=== PATIENT | female | born 1985 | race Caucasian/White ===

== ENCOUNTER 2017-02-25 15:59 | Emergency (ER) | payer MEDICAID ==
[2017-02-25] MEDS: ACETAMINOPHEN 500 MG TAB PO (18:12)
[2017-02-25 18:16] LABS: URINE BLOOD (Dip) POC Negative (NEGATIVE); URINE GLUCOSE (Dip) POC Negative (NEGATIVE); URINE KETONES (Dip) POC Negative (NEGATIVE); URINE LEUKOCYTE EST (Dip) POC Trace (NEGATIVE); URINE NITRITE (Dip) POC Negative (NEGATIVE); URINE TOTAL PROTEIN POC Negative (NEGATIVE)
== END 2017-02-25 19:53 | disposition home or self-care (01) ==
LOC: FTE 15:59
DX: O99.89 Other specified diseases and conditions complicating pregnancy, childbirth and the puerperium (principal); R05 Cough; Z3A.18 18 weeks gestation of pregnancy
CPT/HCPCS: 76805; 81003; 93005; 99284-25

== ENCOUNTER 2017-03-26 10:26 | Emergency (ER) | payer MEDICAID ==
[2017-03-26] MEDS: ONDANSETRON 4 MG INJ IV (13:01)
[2017-03-26] MEDS: SOD CHLORIDE 0.9% 1,000 ML IV (13:03)
[2017-03-26 13:11] LABS: URINE BLOOD (Dip) POC Negative (NEGATIVE); URINE GLUCOSE (Dip) POC Negative (NEGATIVE); URINE KETONES (Dip) POC Trace (NEGATIVE); URINE LEUKOCYTE EST (Dip) POC Negative (NEGATIVE); URINE NITRITE (Dip) POC Negative (NEGATIVE); URINE TOTAL PROTEIN POC 1+ (NEGATIVE)
[2017-03-26 13:17] LABS: ADD MAN DIFF? NO
[2017-03-26 13:20] LABS: BASOPHILS % 0.3 % (0.0-2.0); EOSINOPHILS # 0.1 10^3/ul (0.0-0.5); HEMATOCRIT 29.1 % (37.0-47.0); HEMOGLOBIN 9.8 g/dl (12.0-16.0); LYMPHOCYTES # 0.7 10^3/ul (0.8-2.9); LYMPHOCYTES % 7.4 % (15.0-51.0); MEAN CORPUSCULAR HEMOGLOBIN 29.4 pg (29.0-33.0); MEAN CORPUSCULAR HGB CONC 33.7 g/dl (32.0-37.0); MEAN CORPUSCULAR VOLUME 87.4 fl (82.0-101.0); MEAN PLATELET VOLUME 10.2 fl (7.4-10.4); MONOCYTE # 0.7 10^3/ul (0.3-0.9); MONOCYTES % 7.2 % (0.0-11.0); NEUTROPHIL # 8.2 10^3/ul (1.6-7.5); PLATELET COUNT 281 10^3/UL (140-415); RED BLOOD COUNT 3.33 10^6/ul (4.20-5.40); RED CELL DISTRIBUTION WIDTH 13.2 % (11.5-14.5)
[2017-03-26 13:20] LABS: WHITE BLOOD COUNT 9.8 10^3/ul (4.8-10.8)
[2017-03-26 13:39] LABS: LACTIC ACID 1.2 mmol/L (0.5-2.0)
[2017-03-26 13:40] LABS: ALANINE AMINOTRANSFERASE 34 IU/L (13-69); ALBUMIN 3.7 g/dl (3.3-4.9); ALBUMIN/GLOBULIN RATIO 1.23; ALKALINE PHOSPHATASE 83 IU/L (42-121); ANION GAP 13 (8-16); ASPARTATE AMINO TRANSFERASE 26 IU/L (15-46); BILIRUBIN,INDIRECT 0.1 mg/dl (0-1.1); BILIRUBIN,TOTAL 0.1 mg/dl (0.2-1.3); BLOOD UREA NITROGEN 5 mg/dl (7-20); CALCIUM 8.6 mg/dl (8.4-10.2); CARBON DIOXIDE 23 mmol/L (21-31); CHLORIDE 102 mmol/L (97-110); CREATININE 0.51 mg/dl (0.44-1.00); GLUCOSE 101 mg/dl (70-220); POTASSIUM 3.5 mmol/L (3.5-5.1); SODIUM 134 mmol/L (135-144); TOTAL PROTEIN 6.7 g/dl (6.1-8.1)
[2017-03-26] MEDS: ACETAMINOPHEN 500 MG TAB PO (14:39)
[2017-03-26] MEDS: morphine 2 MG INJ IV (14:39)
== END 2017-03-26 15:48 | disposition home or self-care (01) ==
LOC: FTE 10:26
DX: O99.512 Diseases of the respiratory system complicating pregnancy, second trimester (principal); J06.9 Acute upper respiratory infection, unspecified; R50.9 Fever, unspecified; E66.9 Obesity, unspecified; O99.012 Anemia complicating pregnancy, second trimester; D64.9 Anemia, unspecified; Z3A.23 23 weeks gestation of pregnancy
CPT/HCPCS: 36415; 76805; 80053; 81003; 83605; 85025; 87086; 96374; 96375; 99285-25

== ENCOUNTER 2017-07-21 11:03 | Inpatient (IN) | payer MEDICAID ==
[2017-07-21] MEDS ORDERED: CARBOPROST 250 MCG INJ IM ×2 (11:30→21:00)
[2017-07-21] MEDS ORDERED: METHYLERGONOVINE 0.2 MG INJ IM ×2 (11:30→21:00)
[2017-07-21] MEDS ORDERED: MISOPROSTOL 200 MCG TAB PR ×2 (11:30→21:00)
[2017-07-21] MEDS ORDERED: OXYTOCIN 30 UNITS/LR 500 ML IV ×2 (11:30→21:00)
[2017-07-21 11:41] LABS: ADD MAN DIFF? NO
[2017-07-21 11:51] LABS: WHITE BLOOD COUNT 12.6 10^3/ul (4.8-10.8)
[2017-07-21 11:51] LABS: BASOPHILS % 0.3 % (0.0-2.0); EOSINOPHILS # 0.1 10^3/ul (0.0-0.5); HEMATOCRIT 32.9 % (37.0-47.0); HEMOGLOBIN 10.9 g/dl (12.0-16.0); LYMPHOCYTES % 16.1 % (15.0-51.0); MEAN CORPUSCULAR HEMOGLOBIN 28.8 pg (29.0-33.0); MEAN CORPUSCULAR HGB CONC 33.1 g/dl (32.0-37.0); MEAN PLATELET VOLUME 10.8 fl (7.4-10.4); MONOCYTE # 0.6 10^3/ul (0.3-0.9); MONOCYTES % 5.1 % (0.0-11.0); NEUTROPHIL # 9.7 10^3/ul (1.6-7.5); NEUTROPHILS % 76.6 % (39.0-77.0); PLATELET COUNT 307 10^3/UL (140-415); RED BLOOD COUNT 3.78 10^6/ul (4.20-5.40)
[2017-07-21] MEDS: LACTATED RINGER'S 1,000 ML IV ×2 (11:57→15:25)
[2017-07-21 12:16] LABS: INR 0.85; PROTIME 11.7 Sec (11.9-14.9); PT RATIO 0.9
[2017-07-21 12:17] LABS: PARTIAL THROMBOPLASTIN TIME 25.6 Sec (25.0-35.0)
[2017-07-21] MEDS: CITRIC ACID/SODIUM CITRATE 15 ML CUP PO (12:36)
[2017-07-21] MEDS: ONDANSETRON 4 MG INJ IV (12:36)
[2017-07-21] MEDS ORDERED: OXYTOCIN 10 UNIT INJ (17:01)
[2017-07-21] MEDS ORDERED: PHENYLephrine (100 MCG/ML) 5ML SYG (17:01)
[2017-07-21] MEDS ORDERED: METOCLOPRAMIDE 10 MG INJ (17:01)
[2017-07-21] MEDS ORDERED: FENTAnyl 50 MCG/ML VIAL (17:01)
[2017-07-21] MEDS ORDERED: morphine SULFATE/PF (10 MG/10 ML) INJ (17:01)
[2017-07-21] MEDS ORDERED: BUPIVACAINE 0.75%/DEXT (SPINAL) 2 ML INJ (17:10)
[2017-07-21] MEDS: GENTAMICIN 80 MG/NS (PMX) 50 ML IVPB ×2 (17:10→23:08)
[2017-07-21] MEDS ORDERED: LABETALOL HCL 20MG INJ IV (18:00)
[2017-07-21] MEDS ORDERED: hydrALAzine 20 MG INJ IV (18:00)
[2017-07-21] MEDS ORDERED: TRIMETHOBENZAMIDE 100 MG/ML VIAL IM ×2 (18:00)
[2017-07-21] MEDS ORDERED: morphine 2 MG INJ IV (18:00)
[2017-07-21] MEDS ORDERED: HYDROmorphONE (0.2 MG/ML) 10ML SYG IV ×3 (18:00)
[2017-07-21] MEDS ORDERED: EPHEDrine SULFATE 50 MG/5 ML SYG IV (18:00)
[2017-07-21] MEDS ORDERED: ONDANSETRON 4 MG INJ IV ×2 (18:00)
[2017-07-21] MEDS ORDERED: DIPHENHYDRAMINE 50 MG INJ IV ×2 (18:00)
[2017-07-21] MEDS ORDERED: ALBUTEROL 0.083% (NEB) 2.5 MG/3 ML AMP HHN (18:00)
[2017-07-21] MEDS ORDERED: FENTAnyl 50 MCG/ML VIAL IV ×3 (18:00)
[2017-07-21] MEDS ORDERED: MIDAZOLAM 1 MG/ML 2 ML INJ IV (18:00)
[2017-07-21] MEDS ORDERED: IPRATROPIUM (NEB) 0.5 MG/2.5 ML AMP HHN (18:00)
[2017-07-21] MEDS ORDERED: MEPERIDINE 25 MG INJ IV (18:00)
[2017-07-21] MEDS ORDERED: NALBUPHINE HCL (10 MG/1 ML) INJ IV (18:00)
[2017-07-21] MEDS ORDERED: NALOXONE (0.4 MG/ML) INJ IV (18:00)
[2017-07-21] MEDS ORDERED: OXYCODONE/ACETAMINOPHEN (5/325) TAB PO ×2 (18:00)
[2017-07-21] MEDS: KETOROLAC 30 MG INJ IV (18:54)
[2017-07-21] MEDS: CLINDAMYCIN 900 MG/D5W (PMX) 50 ML IV (19:21)
[2017-07-21] MEDS: OXYTOCIN 30 UNITS/LR 500 ML IV (19:31)
[2017-07-21 20:00] LABS: HEPATITIS B SURFACE ANTIGEN NEGATIVE (NEGATIVE)
[2017-07-21] MEDS ORDERED: HYDROCODONE/APAP (5/325) TAB PO (21:00)
[2017-07-21] MEDS ORDERED: NA PHOSPHATE/BIPHOS 133 ML ENEMA PR (21:00)
[2017-07-21] MEDS: IBUPROFEN 800 MG TAB PO (22:00)
[2017-07-21] MEDS: morphine 2 MG INJ IV (22:12)
[2017-07-21] MEDS: SENNA/DOCUSATE NA (8.6MG/50MG) TAB PO (22:12)
[2017-07-21] MEDS: CLINDAMYCIN 900 MG/D5W (PMX) 50 ML IVPB (22:18)
[2017-07-21 23:14] LABS: RAPID PLASMA REAGIN NONREACTIVE (NR)
[2017-07-22] MEDS: LANOLIN 7 GM TUBE TOP (01:37)
[2017-07-22] MEDS: LACTATED RINGER'S 1,000 ML IV ×3 (01:37→11:38)
[2017-07-22] MEDS: KETOROLAC 30 MG INJ IV ×3 (05:11→17:24)
[2017-07-22] MEDS: GENTAMICIN 80 MG/NS (PMX) 50 ML IVPB ×3 (05:46→22:00)
[2017-07-22] MEDS: IBUPROFEN 800 MG TAB PO ×3 (06:00→21:49)
[2017-07-22] MEDS: CLINDAMYCIN 900 MG/D5W (PMX) 50 ML IVPB ×3 (06:21→22:00)
[2017-07-22 07:35] LABS: ADD MAN DIFF? NO
[2017-07-22 07:49] LABS: BASOPHILS % 0.2 % (0.0-2.0); EOSINOPHILS # 0.1 10^3/ul (0.0-0.5); EOSINOPHILS % 0.4 % (0.0-7.0); HEMATOCRIT 27.2 % (37.0-47.0); HEMOGLOBIN 8.9 g/dl (12.0-16.0); LYMPHOCYTES # 1.3 10^3/ul (0.8-2.9); LYMPHOCYTES % 9.6 % (15.0-51.0); MEAN CORPUSCULAR HEMOGLOBIN 28.9 pg (29.0-33.0); MEAN CORPUSCULAR HGB CONC 32.7 g/dl (32.0-37.0); MEAN CORPUSCULAR VOLUME 88.3 fl (82.0-101.0); MEAN PLATELET VOLUME 10.5 fl (7.4-10.4); MONOCYTE # 0.8 10^3/ul (0.3-0.9); MONOCYTES % 5.9 % (0.0-11.0); NEUTROPHIL # 11.4 10^3/ul (1.6-7.5); NEUTROPHILS % 83.3 % (39.0-77.0); PLATELET COUNT 245 10^3/UL (140-415); RED BLOOD COUNT 3.08 10^6/ul (4.20-5.40); RED CELL DISTRIBUTION WIDTH 14.2 % (11.5-14.5)
[2017-07-22 07:49] LABS: WHITE BLOOD COUNT 13.7 10^3/ul (4.8-10.8)
[2017-07-22] MEDS: SENNA/DOCUSATE NA (8.6MG/50MG) TAB PO ×3 (09:05→22:25)
[2017-07-22] MEDS: BISACODYL 10 MG SUPP PR (10:00)
[2017-07-22] MEDS: morphine 2 MG INJ IV (13:49)
[2017-07-22] MEDS: OXYCODONE/ACETAMINOPHEN (5/325) TAB PO (22:30)
[2017-07-23] MEDS: OXYCODONE/ACETAMINOPHEN (5/325) TAB PO ×4 (03:56→20:10)
[2017-07-23] MEDS: IBUPROFEN 800 MG TAB PO ×3 (05:34→21:31)
[2017-07-23] MEDS ORDERED: CLINDAMYCIN 300 MG CAP PO (06:00)
[2017-07-23 06:43] LABS: ADD MAN DIFF? NO
[2017-07-23 06:45] LABS: BASOPHILS % 0.2 % (0.0-2.0); EOSINOPHILS # 0.2 10^3/ul (0.0-0.5); EOSINOPHILS % 1.2 % (0.0-7.0); HEMATOCRIT 27.2 % (37.0-47.0); HEMOGLOBIN 8.8 g/dl (12.0-16.0); LYMPHOCYTES # 2.1 10^3/ul (0.8-2.9); LYMPHOCYTES % 15.7 % (15.0-51.0); MEAN CORPUSCULAR HEMOGLOBIN 28.7 pg (29.0-33.0); MEAN CORPUSCULAR HGB CONC 32.4 g/dl (32.0-37.0); MEAN CORPUSCULAR VOLUME 88.6 fl (82.0-101.0); MEAN PLATELET VOLUME 10.2 fl (7.4-10.4); MONOCYTES % 7.4 % (0.0-11.0); NEUTROPHIL # 10.1 10^3/ul (1.6-7.5); PLATELET COUNT 263 10^3/UL (140-415); RED BLOOD COUNT 3.07 10^6/ul (4.20-5.40); RED CELL DISTRIBUTION WIDTH 14.5 % (11.5-14.5)
[2017-07-23 06:45] LABS: WHITE BLOOD COUNT 13.4 10^3/ul (4.8-10.8)
[2017-07-23] MEDS: SENNA/DOCUSATE NA (8.6MG/50MG) TAB PO (20:41)
[2017-07-24] MEDS: OXYCODONE/ACETAMINOPHEN (5/325) TAB PO ×3 (03:12→11:45)
[2017-07-24] MEDS: IBUPROFEN 800 MG TAB PO (05:52)
[2017-07-24] MEDS: DIPHTH/TET/ACEL PERTUSS (ADULT) 0.5 ML VIAL IM* (09:00)
[2017-07-24] MEDS: SENNA/DOCUSATE NA (8.6MG/50MG) TAB PO (09:00)
== END 2017-07-24 13:50 | disposition home or self-care (01) | DRG 765 ==
LOC: L-D 11:03 → PP1 21:08
PROVIDERS: Obstetrics & Gynecology
PROC: 10D00Z1 Extraction of Products of Conception, Low, Open Approach (ICD-10-PCS; principal; 2017-07-21 12:30)
PROC: 3E033VJ Introduction of Other Hormone into Peripheral Vein, Percutaneous Approach (ICD-10-PCS; 2017-07-21 12:30)
DX: O34.211 Maternal care for low transverse scar from previous cesarean delivery (principal); Z68.42 Body mass index [BMI] 45.0-49.9, adult; O48.0 Post-term pregnancy; Z3A.40 40 weeks gestation of pregnancy; O99.214 Obesity complicating childbirth; E66.01 Morbid (severe) obesity due to excess calories; Z37.0 Single live birth
CPT/HCPCS: 85025; 85610; 85730; 86592; 86850; 86900; 86901; 87340; 99464

== ENCOUNTER 2017-07-28 12:07 | Inpatient (IN) | payer MEDICAID ==
[2017-07-28] MEDS: HYDROmorphONE 1 MG/5 ML IV SYRINGE IV (12:52)
[2017-07-28] MEDS: ONDANSETRON 4 MG INJ IV (12:55)
[2017-07-28] MEDS: ACETAMINOPHEN 500 MG TAB PO (12:55)
[2017-07-28] MEDS: SODIUM CHLORIDE 0.9% 1L BAG IV* (12:56)
[2017-07-28] MEDS: HYDROmorphONE 1 MG/ML SYG IV (12:56)
[2017-07-28 13:00] LABS: ADD MAN DIFF? NO
[2017-07-28 13:02] LABS: BASOPHILS % 0.2 % (0.0-2.0); EOSINOPHILS # 0.2 10^3/ul (0.0-0.5); EOSINOPHILS % 0.9 % (0.0-7.0); HEMATOCRIT 27.5 % (37.0-47.0); HEMOGLOBIN 8.8 g/dl (12.0-16.0); LYMPHOCYTES % 5.1 % (15.0-51.0); MEAN CORPUSCULAR HEMOGLOBIN 28.6 pg (29.0-33.0); MEAN CORPUSCULAR VOLUME 89.3 fl (82.0-101.0); MEAN PLATELET VOLUME 9.4 fl (7.4-10.4); MONOCYTES % 5.1 % (0.0-11.0); NEUTROPHIL # 16.3 10^3/ul (1.6-7.5); NEUTROPHILS % 87.9 % (39.0-77.0); PLATELET COUNT 427 10^3/UL (140-415); RED BLOOD COUNT 3.08 10^6/ul (4.20-5.40); RED CELL DISTRIBUTION WIDTH 14.1 % (11.5-14.5)
[2017-07-28 13:02] LABS: WHITE BLOOD COUNT 18.6 10^3/ul (4.8-10.8)
[2017-07-28 13:06] LABS: ADD UMIC YES; UR ASCORBIC ACID NEGATIVE (NEGATIVE); UR BACTERIA FEW /HPF (NONE SEEN); UR BILIRUBIN (Dip) NEGATIVE (NEGATIVE); UR BLOOD (Dip) 3+ mg/dL (NEGATIVE); UR CLARITY SLIGHTLY CLOUDY (CLEAR); UR COLOR YELLOW (YELLOW); UR GLUCOSE (Dip) NEGATIVE (NEGATIVE); UR KETONES (Dip) NEGATIVE (NEGATIVE); UR LEUKOCYTE ESTERASE (Dip) 2+ Leu/ul (NEGATIVE); UR NITRITE (Dip) NEGATIVE (NEGATIVE); UR RBC 51 /HPF (0-5); UR SPECIFIC GRAVITY (Dip) 1.017 (1.003-1.030); UR TOTAL PROTEIN (Dip) 1+ mg/dl (NEGATIVE); UR UROBILINOGEN (Dip) NEGATIVE (NEGATIVE); UR WBC 30 /HPF (0-5)
[2017-07-28 13:14] LABS: LACTIC ACID 0.9 mmol/L (0.5-2.0)
[2017-07-28 13:21] LABS: ALANINE AMINOTRANSFERASE 26 IU/L (13-69); ALBUMIN 3.2 g/dl (3.3-4.9); ALBUMIN/GLOBULIN RATIO 1.03; ALKALINE PHOSPHATASE 137 IU/L (42-121); ANION GAP 12 (8-16); ASPARTATE AMINO TRANSFERASE 15 IU/L (15-46); BILIRUBIN,INDIRECT 0.2 mg/dl (0-1.1); BILIRUBIN,TOTAL 0.2 mg/dl (0.2-1.3); BLOOD UREA NITROGEN 9 mg/dl (7-20); CALCIUM 8.6 mg/dl (8.4-10.2); CARBON DIOXIDE 27 mmol/L (21-31); CHLORIDE 107 mmol/L (97-110); CREATININE 0.75 mg/dl (0.44-1.00); GLUCOSE 87 mg/dl (70-220); POTASSIUM 3.7 mmol/L (3.5-5.1); SODIUM 142 mmol/L (135-144); TOTAL PROTEIN 6.3 g/dl (6.1-8.1)
[2017-07-28 13:27] LABS: INR 0.97
[2017-07-28 13:28] LABS: PARTIAL THROMBOPLASTIN TIME 33.5 Sec (25.0-35.0)
[2017-07-28] MEDS: CIPROFLOXACIN 400MG/D5W 200 ML IVPB ×2 (14:00→14:03)
[2017-07-28] MEDS ORDERED: VANCOMYCIN 1 GM (PMX) 250 ML IVPB ×2 (14:00→21:00)
[2017-07-28] MEDS: metroNIDAZOLE 500 MG TAB PO ×2 (15:23→17:40)
[2017-07-28] MEDS: VANCOMYCIN 1.75 GM in SOD CHLORIDE 0.9% 500 ML IVPB (15:39)
[2017-07-28 17:25] LABS: LACTIC ACID 0.8 mmol/L (0.5-2.0)
[2017-07-28] MEDS: HYDROmorphONE 2 MG TAB PO (17:41)
[2017-07-28] MEDS: LACTATED RINGER S IV (18:20)
[2017-07-28] MEDS: KETOROLAC 30 MG INJ IV (18:28)
[2017-07-28 19:55] LABS: LACTIC ACID 1.3 mmol/L (0.5-2.0)
[2017-07-28] MEDS: FAMOTIDINE 20 MG TAB PO (20:14)
[2017-07-28] MEDS: HYDROCODONE/APAP (5/325) TAB PO (20:14)
[2017-07-28] MEDS ORDERED: CIPROFLOXACIN 400MG/D5W 200 ML IVPB (23:00)
[2017-07-28] MEDS: ACETAMINOPHEN 325 MG TAB PO (23:55)
[2017-07-28] MEDS: VANCOMYCIN 1 GM in 250 ML IVPB (23:57)
[2017-07-29] MEDS: KETOROLAC 30 MG INJ IV ×4 (01:04→21:36)
[2017-07-29] MEDS: metroNIDAZOLE 500 MG TAB PO ×5 (01:04→23:05)
[2017-07-29] MEDS: CIPROFLOXACIN 400MG/D5W 200 ML IVPB ×3 (02:29→20:25)
[2017-07-29] MEDS: HYDROCODONE/APAP (5/325) TAB PO ×2 (04:47→17:10)
[2017-07-29 06:05] LABS: WHITE BLOOD COUNT 17.2 10^3/ul (4.8-10.8)
[2017-07-29 06:05] LABS: HEMATOCRIT 25.2 % (37.0-47.0); MEAN CORPUSCULAR HEMOGLOBIN 28.3 pg (29.0-33.0); MEAN CORPUSCULAR HGB CONC 31.7 g/dl (32.0-37.0); MEAN PLATELET VOLUME 9.4 fl (7.4-10.4); PLATELET COUNT 421 10^3/UL (140-415); RED BLOOD COUNT 2.83 10^6/ul (4.20-5.40); RED CELL DISTRIBUTION WIDTH 14.3 % (11.5-14.5)
[2017-07-29 06:10] LABS: ADD MAN DIFF? YES; POSITIVE DIFF @See below
[2017-07-29 06:28] LABS: INR 1.12; PROTIME 14.6 Sec (11.9-14.9); PT RATIO 1.1
[2017-07-29 06:29] LABS: PARTIAL THROMBOPLASTIN TIME 36.3 Sec (25.0-35.0)
[2017-07-29 06:38] LABS: ALANINE AMINOTRANSFERASE 25 IU/L (13-69); ALBUMIN 2.7 g/dl (3.3-4.9); ALBUMIN/GLOBULIN RATIO 0.93; ALKALINE PHOSPHATASE 122 IU/L (42-121); ANION GAP 10 (8-16); ASPARTATE AMINO TRANSFERASE 12 IU/L (15-46); BILIRUBIN,INDIRECT 0.2 mg/dl (0-1.1); BILIRUBIN,TOTAL 0.2 mg/dl (0.2-1.3); BLOOD UREA NITROGEN 8 mg/dl (7-20); CALCIUM 8.4 mg/dl (8.4-10.2); CARBON DIOXIDE 26 mmol/L (21-31); CHLORIDE 110 mmol/L (97-110); CREATININE 0.75 mg/dl (0.44-1.00); GLUCOSE 94 mg/dl (70-220); POTASSIUM 3.8 mmol/L (3.5-5.1); SODIUM 142 mmol/L (135-144); TOTAL PROTEIN 5.6 g/dl (6.1-8.1)
[2017-07-29] MEDS: VANCOMYCIN 1 GM in 250 ML IVPB ×3 (06:47→23:05)
[2017-07-29 07:03] LABS: ANISOCYTOSIS 1+ (0-0); BAND NEUTROPHILS % (M) 18 % (0-4); EOSINOPHILS % (M) 1 % (0-7); GIANT THROMBO% (M) 1 % (0-0); LYMPHOCYTES #M 0.5 10^3/ul (0.8-2.9); LYMPHOCYTES % (M) 3 % (15-51); MICROCYTOSIS 1+ (0-0); MONOCYTE #M 0.5 10^3/ul (0.3-0.9); MONOCYTES % (M) 3 % (0-11); PLATELET ESTIMATE NORMAL; POLYCHROMASIA 1+ (0-0); SEG NEUT #M 13.4 10^3/ul (1.6-7.5); SEGMENTED NEUTROPHILS (M) % 75 % (39-77)
[2017-07-29] MEDS: ENOXAPARIN 40 MG/0.4 ML SYG SC (07:10)
[2017-07-29 07:11] LABS: HEMOGLOBIN A1C 5.8 % (0-5.9)
[2017-07-29] MEDS: FAMOTIDINE 20 MG TAB PO ×2 (08:26→20:26)
[2017-07-29] MEDS: DOCUSATE SODIUM 100 MG CAP PO (12:26)
[2017-07-29] MEDS: ACETAMINOPHEN 325 MG TAB PO (14:17)
[2017-07-29 14:46] LABS: VANCOMYCIN,TROUGH 11.4 ug/ml (10.0-20.0)
[2017-07-30] MEDS: HYDROCODONE/APAP (5/325) TAB PO ×3 (03:20→22:23)
[2017-07-30] MEDS: metroNIDAZOLE 500 MG TAB PO ×3 (05:28→18:02)
[2017-07-30] MEDS: VANCOMYCIN 1 GM in 250 ML IVPB ×2 (06:08→15:25)
[2017-07-30 06:12] LABS: ADD MAN DIFF? NO
[2017-07-30 06:13] LABS: BASOPHILS % 0.3 % (0.0-2.0); EOSINOPHILS # 0.2 10^3/ul (0.0-0.5); EOSINOPHILS % 1.5 % (0.0-7.0); HEMATOCRIT 23.4 % (37.0-47.0); HEMOGLOBIN 7.6 g/dl (12.0-16.0); LYMPHOCYTES # 1.1 10^3/ul (0.8-2.9); LYMPHOCYTES % 7.6 % (15.0-51.0); MEAN CORPUSCULAR HEMOGLOBIN 28.9 pg (29.0-33.0); MEAN CORPUSCULAR HGB CONC 32.5 g/dl (32.0-37.0); MEAN PLATELET VOLUME 9.4 fl (7.4-10.4); MONOCYTE # 0.7 10^3/ul (0.3-0.9); NEUTROPHIL # 12.1 10^3/ul (1.6-7.5); NEUTROPHILS % 84.5 % (39.0-77.0); PLATELET COUNT 463 10^3/UL (140-415); RED BLOOD COUNT 2.63 10^6/ul (4.20-5.40); RED CELL DISTRIBUTION WIDTH 14.2 % (11.5-14.5)
[2017-07-30 06:13] LABS: WHITE BLOOD COUNT 14.3 10^3/ul (4.8-10.8)
[2017-07-30 06:40] LABS: ALANINE AMINOTRANSFERASE 22 IU/L (13-69); ALBUMIN 2.7 g/dl (3.3-4.9); ALBUMIN/GLOBULIN RATIO 0.93; ALKALINE PHOSPHATASE 118 IU/L (42-121); ANION GAP 5 (8-16); ASPARTATE AMINO TRANSFERASE 10 IU/L (15-46); BLOOD UREA NITROGEN 9 mg/dl (7-20); CALCIUM 8.4 mg/dl (8.4-10.2); CARBON DIOXIDE 26 mmol/L (21-31); CHLORIDE 110 mmol/L (97-110); CREATININE 0.73 mg/dl (0.44-1.00); GLUCOSE 110 mg/dl (70-220); POTASSIUM 3.3 mmol/L (3.5-5.1); SODIUM 138 mmol/L (135-144); TOTAL PROTEIN 5.6 g/dl (6.1-8.1)
[2017-07-30] MEDS: ENOXAPARIN 40 MG/0.4 ML SYG SC (06:48)
[2017-07-30] MEDS: HYDROmorphONE 2 MG TAB PO (08:52)
[2017-07-30] MEDS: FAMOTIDINE 20 MG TAB PO ×2 (08:53→22:12)
[2017-07-30] MEDS: CIPROFLOXACIN 400MG/D5W 200 ML IVPB ×2 (08:54→22:11)
[2017-07-30] MEDS: KETOROLAC 30 MG INJ IV ×2 (11:41→17:57)
[2017-07-30] MEDS: AMIKACIN 300 MG in SOD CHLORIDE 0.9% 100 ML IVPB (18:00)
[2017-07-30] MEDS: BARIUM SULF 2% 450 ML BTL (BERRY SMOOTHIE) PO (20:07)
[2017-07-30] MEDS: SOD CHLORIDE 0.9% 100 ML (20:49)
[2017-07-30] MEDS: IOHEXOL 300MG/ML 150 ML BTL (20:49)
[2017-07-31] MEDS: metroNIDAZOLE 500 MG TAB PO ×4 (00:15→17:33)
[2017-07-31] MEDS: KETOROLAC 30 MG INJ IV ×3 (01:48→13:43)
[2017-07-31] MEDS: AMIKACIN 300 MG in SOD CHLORIDE 0.9% 100 ML IVPB ×3 (02:33→17:34)
[2017-07-31 05:58] LABS: ADD MAN DIFF? NO
[2017-07-31 06:04] LABS: BASOPHIL # 0.1 10^3/ul (0.0-0.1); BASOPHILS % 0.5 % (0.0-2.0); EOSINOPHILS # 0.2 10^3/ul (0.0-0.5); HEMATOCRIT 25.2 % (37.0-47.0); LYMPHOCYTES # 1.5 10^3/ul (0.8-2.9); LYMPHOCYTES % 13.8 % (15.0-51.0); MEAN CORPUSCULAR HEMOGLOBIN 28.2 pg (29.0-33.0); MEAN CORPUSCULAR HGB CONC 31.7 g/dl (32.0-37.0); MEAN CORPUSCULAR VOLUME 88.7 fl (82.0-101.0); MEAN PLATELET VOLUME 9.4 fl (7.4-10.4); MONOCYTE # 0.8 10^3/ul (0.3-0.9); MONOCYTES % 7.3 % (0.0-11.0); NEUTROPHIL # 8.1 10^3/ul (1.6-7.5); NEUTROPHILS % 73.2 % (39.0-77.0); PLATELET COUNT 509 10^3/UL (140-415); RED BLOOD COUNT 2.84 10^6/ul (4.20-5.40); RED CELL DISTRIBUTION WIDTH 14.1 % (11.5-14.5)
[2017-07-31] MEDS: ENOXAPARIN 40 MG/0.4 ML SYG SC (06:14)
[2017-07-31] MEDS: FAMOTIDINE 20 MG TAB PO ×2 (08:09→21:07)
[2017-07-31] MEDS: CIPROFLOXACIN 400MG/D5W 200 ML IVPB (08:10)
[2017-07-31] MEDS ORDERED: HYDROGEN PEROXIDE 118 ML (14:40)
[2017-07-31] MEDS: IBUPROFEN 800 MG TAB PO ×2 (16:22→21:07)
[2017-07-31] MEDS: CIPROFLOXACIN 250 MG TAB PO (17:33)
[2017-07-31] MEDS: OXYCODONE/ACETAMINOPHEN (10/325) TAB PO (17:33)
[2017-08-01] MEDS: metroNIDAZOLE 500 MG TAB PO ×4 (00:46→17:33)
[2017-08-01] MEDS: AMIKACIN 300 MG in SOD CHLORIDE 0.9% 100 ML IVPB ×2 (03:00→09:49)
[2017-08-01] MEDS: IBUPROFEN 800 MG TAB PO ×4 (03:20→20:53)
[2017-08-01] MEDS: CIPROFLOXACIN 250 MG TAB PO ×2 (06:14→17:33)
[2017-08-01] MEDS: HYDROCODONE/APAP (5/325) TAB PO (06:14)
[2017-08-01 06:24] LABS: ADD MAN DIFF? NO
[2017-08-01] MEDS: METOCLOPRAMIDE 10 MG INJ IV (06:25)
[2017-08-01 06:36] LABS: WHITE BLOOD COUNT 9.8 10^3/ul (4.8-10.8)
[2017-08-01 06:36] LABS: ABNORMAL IP MESSAGE 1; BASOPHILS % 0.4 % (0.0-2.0); EOSINOPHILS # 0.2 10^3/ul (0.0-0.5); EOSINOPHILS % 2.1 % (0.0-7.0); HEMATOCRIT 24.6 % (37.0-47.0); HEMOGLOBIN 7.9 g/dl (12.0-16.0); LYMPHOCYTES # 1.4 10^3/ul (0.8-2.9); LYMPHOCYTES % 13.8 % (15.0-51.0); MEAN CORPUSCULAR HEMOGLOBIN 28.3 pg (29.0-33.0); MEAN CORPUSCULAR HGB CONC 32.1 g/dl (32.0-37.0); MEAN CORPUSCULAR VOLUME 88.2 fl (82.0-101.0); MEAN PLATELET VOLUME 9.4 fl (7.4-10.4); MONOCYTE # 0.8 10^3/ul (0.3-0.9); MONOCYTES % 8.2 % (0.0-11.0); NEUTROPHIL # 6.9 10^3/ul (1.6-7.5); NEUTROPHILS % 69.9 % (39.0-77.0); NUCLEATED RED BLOOD CELLS% 0.2 /100WBC (0.0-0.0); PLATELET COUNT 491 10^3/UL (140-415); RED BLOOD COUNT 2.79 10^6/ul (4.20-5.40)
[2017-08-01 07:03] LABS: POSITIVE DIFF @See below
[2017-08-01] MEDS: *AMIKACIN TROUGH & PEAK XX (07:30)
[2017-08-01] MEDS: ENOXAPARIN 40 MG/0.4 ML SYG SC (07:38)
[2017-08-01 07:48] LABS: ANISOCYTOSIS 1+ (0-0); BAND NEUTROPHILS #M 1.9 10^3/ul (0.0-0.6); BAND NEUTROPHILS % (M) 20 % (0-4); GIANT THROMBO% (M) 2 % (0-0); LYMPHOCYTES #M 1.3 10^3/ul (0.8-2.9); LYMPHOCYTES % (M) 14 % (15-51); METAMYELOCYTES #M 0.1 10^3/ul (0.0-0.0); METAMYELOCYTES %M 2 % (0-0); MICROCYTOSIS 1+ (0-0); MONOCYTE #M 0.4 10^3/ul (0.3-0.9); MONOCYTES % (M) 5 % (0-11); MYELOCYTES #M 0.2 10^3/ul (0.0-0.0); MYELOCYTES % (M) 3 % (0-0); PLATELET ESTIMATE INCREASED; POLYCHROMASIA 1+ (0-0); SEG NEUT #M 5.7 10^3/ul (1.6-7.5); SEGMENTED NEUTROPHILS (M) % 56 % (39-77)
[2017-08-01] MEDS: FAMOTIDINE 20 MG TAB PO ×2 (09:25→20:53)
[2017-08-01] MEDS: ACETAMINOPHEN 325 MG TAB PO (15:09)
[2017-08-01] MEDS: OXYCODONE/ACETAMINOPHEN (10/325) TAB PO (17:30)
[2017-08-01] MEDS: ERTAPENEM SODIUM 1 GM in SOD CHLORIDE 0.9% 100 ML IVPB (21:48)
[2017-08-01] MEDS ORDERED: AMIKACIN 900 MG in SOD CHLORIDE 0.9% 250 ML IVPB (23:00)
[2017-08-02] MEDS: metroNIDAZOLE 500 MG TAB PO ×3 (00:18→12:23)
[2017-08-02] MEDS: IBUPROFEN 800 MG TAB PO ×4 (03:31→21:23)
[2017-08-02] MEDS: CIPROFLOXACIN 250 MG TAB PO (05:40)
[2017-08-02 05:57] LABS: WHITE BLOOD COUNT 9.5 10^3/ul (4.8-10.8)
[2017-08-02 05:57] LABS: ABNORMAL IP MESSAGE 1; HEMATOCRIT 24.7 % (37.0-47.0); HEMOGLOBIN 7.9 g/dl (12.0-16.0); MEAN CORPUSCULAR HEMOGLOBIN 27.9 pg (29.0-33.0); MEAN CORPUSCULAR VOLUME 87.3 fl (82.0-101.0); MEAN PLATELET VOLUME 9.2 fl (7.4-10.4); NUCLEATED RED BLOOD CELLS% 0.2 /100WBC (0.0-0.0); PLATELET COUNT 511 10^3/UL (140-415); RED BLOOD COUNT 2.83 10^6/ul (4.20-5.40)
[2017-08-02 06:05] LABS: POSITIVE DIFF @See below
[2017-08-02 06:06] LABS: ADD MAN DIFF? YES
[2017-08-02 06:16] LABS: ANION GAP 9 (8-16); BLOOD UREA NITROGEN 12 mg/dl (7-20); CALCIUM 8.6 mg/dl (8.4-10.2); CARBON DIOXIDE 26 mmol/L (21-31); CHLORIDE 108 mmol/L (97-110); CREATININE 0.84 mg/dl (0.44-1.00); GLUCOSE 82 mg/dl (70-220); POTASSIUM 3.6 mmol/L (3.5-5.1); SODIUM 139 mmol/L (135-144)
[2017-08-02] MEDS: ENOXAPARIN 40 MG/0.4 ML SYG SC (07:35)
[2017-08-02] MEDS: FAMOTIDINE 20 MG TAB PO ×2 (09:01→21:23)
[2017-08-02 09:24] LABS: ANISOCYTOSIS 1+ (0-0); BAND NEUTROPHILS #M 1.1 10^3/ul (0.0-0.6); BAND NEUTROPHILS % (M) 12 % (0-4); EOSINOPHILS % (M) 5 % (0-7); LYMPHOCYTES #M 2.4 10^3/ul (0.8-2.9); LYMPHOCYTES % (M) 26 % (15-51); METAMYELOCYTES #M 0.4 10^3/ul (0.0-0.0); METAMYELOCYTES %M 5 % (0-0); MONOCYTES % (M) 1 % (0-11); MYELOCYTES #M 0.1 10^3/ul (0.0-0.0); MYELOCYTES % (M) 2 % (0-0); OVALOCYTES 1+ (0-0); PLATELET ESTIMATE INCREASED; POLYCHROMASIA 1+ (0-0); REACTIVE LYMPHOCYTES #M 0.1 10^3/ul (0.0-0.0); REACTIVE LYMPHOCYTES% (M) 2 % (0-0); SEG NEUT #M 4.5 10^3/ul (1.6-7.5); SEGMENTED NEUTROPHILS (M) % 46 % (39-77); SMUDGE%M 2 % (0-0)
[2017-08-02] MEDS: ZYVOX 600 MG TAB PO ×2 (15:30→21:23)
[2017-08-02] MEDS: OXYCODONE/ACETAMINOPHEN (10/325) TAB PO (18:31)
[2017-08-02] MEDS: ERTAPENEM SODIUM 1 GM in SOD CHLORIDE 0.9% 100 ML IVPB (18:38)
[2017-08-03] MEDS: IBUPROFEN 800 MG TAB PO ×4 (03:30→15:59)
[2017-08-03] MEDS: ENOXAPARIN 40 MG/0.4 ML SYG SC (05:29)
[2017-08-03] MEDS: ZYVOX 600 MG TAB PO (08:55)
[2017-08-03] MEDS: FAMOTIDINE 20 MG TAB PO (08:55)
[2017-08-03] MEDS: HYDROCODONE/APAP (5/325) TAB PO (15:59)
[2017-08-03] MEDS: ERTAPENEM SODIUM 1 GM in SOD CHLORIDE 0.9% 100 ML IVPB (18:30)
[2017-08-03] MEDS: ACETAMINOPHEN 325 MG TAB PO (19:42)
== END 2017-08-03 19:45 | disposition home or self-care (01) | DRG 776 ==
LOC: E/R 12:07 → MS2 13:43
DX: O86.0 Infection of obstetric surgical wound (principal); O85 Puerperal sepsis; O86.20 Urinary tract infection following delivery, unspecified; E66.9 Obesity, unspecified; B96.4 Proteus (mirabilis) (morganii) as the cause of diseases classified elsewhere
CPT/HCPCS: 36415; 71045; 74176; 74177; 80048; 80053; 80150; 80202; 81001; 83036; 83605; 85025; 85610; 85730; 87040; 87070; 87086; 93005; 96365; 96366; 96367; 96375; 99291-25

== ENCOUNTER 2017-09-05 05:45 | Inpatient (IN) | payer MEDICAID ==
[2017-09-05] MEDS: ACETAMINOPHEN 325 MG TAB PO (06:53)
[2017-09-05 07:01] LABS: ADD MAN DIFF? NO
[2017-09-05 07:04] LABS: BASOPHIL # 0.1 10^3/ul (0.0-0.1); BASOPHILS % 0.5 % (0.0-2.0); EOSINOPHILS # 0.2 10^3/ul (0.0-0.5); EOSINOPHILS % 1.9 % (0.0-7.0); HEMATOCRIT 30.9 % (37.0-47.0); HEMOGLOBIN 10.1 g/dl (12.0-16.0); LYMPHOCYTES % 18.1 % (15.0-51.0); MEAN CORPUSCULAR HEMOGLOBIN 28.5 pg (29.0-33.0); MEAN CORPUSCULAR HGB CONC 32.7 g/dl (32.0-37.0); MEAN PLATELET VOLUME 10.1 fl (7.4-10.4); MONOCYTE # 0.5 10^3/ul (0.3-0.9); MONOCYTES % 4.7 % (0.0-11.0); NEUTROPHIL # 8.1 10^3/ul (1.6-7.5); NEUTROPHILS % 74.5 % (39.0-77.0); PLATELET COUNT 402 10^3/UL (140-415); RED BLOOD COUNT 3.55 10^6/ul (4.20-5.40); RED CELL DISTRIBUTION WIDTH 14.2 % (11.5-14.5)
[2017-09-05 07:04] LABS: WHITE BLOOD COUNT 10.9 10^3/ul (4.8-10.8)
[2017-09-05 07:12] LABS: ADD UMIC YES; UR ASCORBIC ACID NEGATIVE (NEGATIVE); UR BILIRUBIN (Dip) NEGATIVE (NEGATIVE); UR BLOOD (Dip) NEGATIVE (NEGATIVE); UR CLARITY CLEAR (CLEAR); UR COLOR YELLOW (YELLOW); UR GLUCOSE (Dip) NEGATIVE (NEGATIVE); UR KETONES (Dip) NEGATIVE (NEGATIVE); UR LEUKOCYTE ESTERASE (Dip) 2+ Leu/ul (NEGATIVE); UR NITRITE (Dip) NEGATIVE (NEGATIVE); UR RBC 2 /HPF (0-5); UR SPECIFIC GRAVITY (Dip) 1.019 (1.003-1.030); UR SQUAMOUS EPITHELIAL CELL FEW /HPF (FEW); UR TOTAL PROTEIN (Dip) NEGATIVE (NEGATIVE); UR UROBILINOGEN (Dip) NEGATIVE (NEGATIVE); UR WBC 13 /HPF (0-5)
[2017-09-05 07:24] LABS: ALANINE AMINOTRANSFERASE 30 IU/L (13-69); ALBUMIN 4.2 g/dl (3.3-4.9); ALBUMIN/GLOBULIN RATIO 1.27; ALKALINE PHOSPHATASE 104 IU/L (42-121); ANION GAP 15 (8-16); ASPARTATE AMINO TRANSFERASE 28 IU/L (15-46); BILIRUBIN,INDIRECT 0.2 mg/dl (0-1.1); BILIRUBIN,TOTAL 0.2 mg/dl (0.2-1.3); BLOOD UREA NITROGEN 16 mg/dl (7-20); CALCIUM 8.7 mg/dl (8.4-10.2); CARBON DIOXIDE 22 mmol/L (21-31); CHLORIDE 109 mmol/L (97-110); CREATINE KINASE 125 IU/L (23-200); CREATININE 0.83 mg/dl (0.44-1.00); GLUCOSE 94 mg/dl (70-220); POTASSIUM 4.5 mmol/L (3.5-5.1); SODIUM 141 mmol/L (135-144); TOTAL PROTEIN 7.5 g/dl (6.1-8.1)
[2017-09-05 07:40] LABS: TROPONIN-I 0.415 ng/ml (0.000-0.120)
[2017-09-05] MEDS: ASPIRIN 81 MG TAB PO (08:07)
[2017-09-05] MEDS: SOD CHLORIDE 0.9% 1,000 ML IV ×3 (08:08→22:21)
[2017-09-05] MEDS: IOHEXOL 350MG/ML 50 ML BTL (09:25)
[2017-09-05] MEDS: IOHEXOL 100 ML (09:25)
[2017-09-05] MEDS: SOD CHLORIDE 0.9% 100 ML (09:25)
[2017-09-05] MEDS ORDERED: ZOLPIDEM 5 MG TAB PO (11:30)
[2017-09-05] MEDS ORDERED: NACL 0.9% 3 ML SYG IV (11:30)
[2017-09-05] MEDS ORDERED: ONDANSETRON 4 MG INJ IV (11:30)
[2017-09-05] MEDS ORDERED: NITROGLYCERIN (SL) 0.4 MG TAB SL (11:30)
[2017-09-05] MEDS ORDERED: morphine 2 MG INJ IV (11:30)
[2017-09-05] MEDS: CEFTRIAXONE 1 GM/50 ML (PMX) 50 ML IVPB (11:59)
[2017-09-05 19:09] LABS: CREATINE KINASE 281 IU/L (23-200)
[2017-09-05 19:19] LABS: CK INDEX 5.1
[2017-09-05 21:21] LABS: ADD MAN DIFF? NO
[2017-09-05 21:24] LABS: WHITE BLOOD COUNT 8.9 10^3/ul (4.8-10.8)
[2017-09-05 21:24] LABS: BASOPHILS % 0.4 % (0.0-2.0); EOSINOPHILS # 0.2 10^3/ul (0.0-0.5); EOSINOPHILS % 2.1 % (0.0-7.0); HEMATOCRIT 29.9 % (37.0-47.0); HEMOGLOBIN 9.9 g/dl (12.0-16.0); LYMPHOCYTES # 2.8 10^3/ul (0.8-2.9); LYMPHOCYTES % 31.6 % (15.0-51.0); MEAN CORPUSCULAR HEMOGLOBIN 28.7 pg (29.0-33.0); MEAN CORPUSCULAR HGB CONC 33.1 g/dl (32.0-37.0); MEAN CORPUSCULAR VOLUME 86.7 fl (82.0-101.0); MEAN PLATELET VOLUME 9.3 fl (7.4-10.4); MONOCYTE # 0.4 10^3/ul (0.3-0.9); MONOCYTES % 4.4 % (0.0-11.0); NEUTROPHIL # 5.4 10^3/ul (1.6-7.5); NEUTROPHILS % 61.3 % (39.0-77.0); PLATELET COUNT 393 10^3/UL (140-415); RED BLOOD COUNT 3.45 10^6/ul (4.20-5.40); RED CELL DISTRIBUTION WIDTH 14.2 % (11.5-14.5)
[2017-09-05 21:46] LABS: INR 0.95; PROTIME 12.8 Sec (11.9-14.9)
[2017-09-05 21:47] LABS: PARTIAL THROMBOPLASTIN TIME 26.8 Sec (25.0-35.0)
[2017-09-05] MEDS: HYDROCODONE/APAP (5/325) TAB PO (22:12)
[2017-09-05] MEDS: CLOPIDOGREL 75 MG TAB PO (22:13)
[2017-09-05] MEDS: HEPARIN 1000 UNITS/ML 10 ML INJ IV (22:17)
[2017-09-05] MEDS: HEPARIN 25000 UNITS/250 ML 250 ML IV (22:40)
[2017-09-05] MEDS ORDERED: morphine LIQ (10 MG/5 ML) CUP PO (23:30)
[2017-09-06 05:58] LABS: ADD MAN DIFF? NO
[2017-09-06 06:06] LABS: WHITE BLOOD COUNT 8.1 10^3/ul (4.8-10.8)
[2017-09-06 06:06] LABS: BASOPHIL # 0.1 10^3/ul (0.0-0.1); BASOPHILS % 0.7 % (0.0-2.0); EOSINOPHILS # 0.2 10^3/ul (0.0-0.5); EOSINOPHILS % 2.5 % (0.0-7.0); HEMATOCRIT 29.8 % (37.0-47.0); HEMOGLOBIN 9.6 g/dl (12.0-16.0); LYMPHOCYTES # 3.2 10^3/ul (0.8-2.9); LYMPHOCYTES % 39.8 % (15.0-51.0); MEAN CORPUSCULAR HEMOGLOBIN 28.2 pg (29.0-33.0); MEAN CORPUSCULAR HGB CONC 32.2 g/dl (32.0-37.0); MEAN CORPUSCULAR VOLUME 87.4 fl (82.0-101.0); MONOCYTE # 0.6 10^3/ul (0.3-0.9); MONOCYTES % 6.8 % (0.0-11.0); PLATELET COUNT 374 10^3/UL (140-415); RED BLOOD COUNT 3.41 10^6/ul (4.20-5.40); RED CELL DISTRIBUTION WIDTH 14.5 % (11.5-14.5)
[2017-09-06 06:18] LABS: PARTIAL THROMBOPLASTIN TIME 36.1 Sec (25.0-35.0)
[2017-09-06] MEDS: HEPARIN 1000 UNITS/ML 10 ML INJ IV (06:33)
[2017-09-06 06:46] LABS: CREATINE KINASE 163 IU/L (23-200)
[2017-09-06 06:57] LABS: CK INDEX 3.8
[2017-09-06] MEDS ORDERED: LIDOCAINE 1% (MDV) 10 ML INJ ×2 (07:56→08:43)
[2017-09-06] MEDS ORDERED: IODIXANOL LOCM 100 ML BTL ×2 (07:56→08:43)
[2017-09-06] MEDS: SOD CHLORIDE 0.9% 1,000 ML IV ×2 (07:56→14:09)
[2017-09-06] MEDS: ASPIRIN (EC) 325 MG TAB PO (08:08)
[2017-09-06 08:27] LABS: ANION GAP 11 (8-16); BLOOD UREA NITROGEN 10 mg/dl (7-20); CALCIUM 8.5 mg/dl (8.4-10.2); CARBON DIOXIDE 23 mmol/L (21-31); CHLORIDE 112 mmol/L (97-110); CREATININE 0.77 mg/dl (0.44-1.00); GLUCOSE 85 mg/dl (70-220); MAGNESIUM 1.7 mg/dl (1.7-2.5); PHOSPHORUS 4.7 mg/dl (2.5-4.9); POTASSIUM 4.3 mmol/L (3.5-5.1); SODIUM 142 mmol/L (135-144)
[2017-09-06 08:30] LABS: HEMOGLOBIN A1C 5.4 % (0-5.9)
[2017-09-06] MEDS ORDERED: HEPARIN 1000 UNITS/ML 10 ML INJ (08:43)
[2017-09-06] MEDS ORDERED: FENTAnyl 50 MCG/ML VIAL (08:43)
[2017-09-06] MEDS ORDERED: MIDAZOLAM 1 MG/ML 2 ML INJ (08:43)
[2017-09-06] MEDS ORDERED: VERAPAMIL 5 MG INJ (08:43)
[2017-09-06 08:44] LABS: T4 (THYROXINE) 6.5 ug/dl (5.5-11.0)
[2017-09-06] MEDS ORDERED: NITROGLYCERIN (IC) 100 MCG/ML INJ (08:44)
[2017-09-06] MEDS ORDERED: SOD CHLORIDE 0.9% 500 ML (09:46)
[2017-09-06 09:49] LABS: CHOL/HDL RATIO 4.4 RATIO; HDL CHOLESTEROL 45 mg/dl (34-82); LDL CHOLESTEROL,CALCULATED 101 mg/dl; TRIGLYCERIDES 263 mg/dl (0-149)
[2017-09-06 09:49] LABS: CHOLESTEROL 199 mg/dl (100-200)
[2017-09-06] MEDS ORDERED: ACETAMINOPHEN 325 MG TAB PO (10:00)
[2017-09-06] MEDS ORDERED: morphine 2 MG INJ (10:16)
[2017-09-06] MEDS: morphine 2 MG INJ IV ×2 (10:37→13:50)
[2017-09-06 10:38] LABS: T3 UPTAKE 33.9 % (23.5-40.5)
[2017-09-06] MEDS: MAGNESIUM SULFATE 2 GM/50 ML 50 ML IVPB (11:19)
[2017-09-06] MEDS: NITROGLYCERIN 0.1 MG/HR PATCH TRANSDERM (11:58)
[2017-09-06] MEDS: CEFTRIAXONE 1 GM/50 ML (PMX) 50 ML IVPB (13:41)
[2017-09-06] MEDS: ACETAMINOPHEN 325 MG TAB PO (17:36)
[2017-09-06] MEDS: MAGNESIUM OXIDE 400 MG TAB PO (21:08)
[2017-09-06] MEDS: HYDROCODONE/APAP (5/325) TAB PO (21:08)
[2017-09-07] MEDS: HYDROCODONE/APAP (5/325) TAB PO (06:41)
[2017-09-07 07:34] LABS: MAGNESIUM 1.8 mg/dl (1.7-2.5)
[2017-09-07 07:35] LABS: CREATINE KINASE 93 IU/L (23-200)
[2017-09-07 07:37] LABS: ALANINE AMINOTRANSFERASE 32 IU/L (13-69); ALBUMIN 3.8 g/dl (3.3-4.9); ALBUMIN/GLOBULIN RATIO 1.35; ALKALINE PHOSPHATASE 100 IU/L (42-121); ANION GAP 11 (8-16); ASPARTATE AMINO TRANSFERASE 34 IU/L (15-46); BILIRUBIN,INDIRECT 0.1 mg/dl (0-1.1); BILIRUBIN,TOTAL 0.1 mg/dl (0.2-1.3); BLOOD UREA NITROGEN 8 mg/dl (7-20); CALCIUM 9.1 mg/dl (8.4-10.2); CARBON DIOXIDE 27 mmol/L (21-31); CHLORIDE 108 mmol/L (97-110); CHOL/HDL RATIO 4.8 RATIO; CHOLESTEROL 212 mg/dl (100-200); CREATININE 0.86 mg/dl (0.44-1.00); GLUCOSE 86 mg/dl (70-220); HDL CHOLESTEROL 44 mg/dl (34-82); LDL CHOLESTEROL,CALCULATED 110 mg/dl; POTASSIUM 4.5 mmol/L (3.5-5.1); SODIUM 141 mmol/L (135-144); TOTAL PROTEIN 6.6 g/dl (6.1-8.1); TRIGLYCERIDES 291 mg/dl (0-149)
[2017-09-07 08:04] LABS: CK INDEX 3.9; CK-MB 3.63 ng/ml (0.0-2.4)
[2017-09-07] MEDS: MAGNESIUM OXIDE 400 MG TAB PO (08:43)
[2017-09-07] MEDS: NITROGLYCERIN 0.1 MG/HR PATCH TRANSDERM (08:44)
[2017-09-07] MEDS: ASPIRIN (EC) 81 MG TAB PO (08:44)
[2017-09-07] MEDS: CEFTRIAXONE 1 GM/50 ML (PMX) 50 ML IVPB (09:44)
== END 2017-09-07 12:30 | disposition home or self-care (01) | DRG 280 ==
LOC: FTE 05:45 → TEL 08:01
PROC: 4A023N7 Measurement of Cardiac Sampling and Pressure, Left Heart, Percutaneous Approach (ICD-10-PCS; principal; 2017-09-06 08:34)
PROC: B2111ZZ Fluoroscopy of Multiple Coronary Arteries using Low Osmolar Contrast (ICD-10-PCS; 2017-09-06 08:34)
DX: I21.4 Non-ST elevation (NSTEMI) myocardial infarction (principal); I25.42 Coronary artery dissection; Z68.42 Body mass index [BMI] 45.0-49.9, adult; D64.9 Anemia, unspecified; E66.9 Obesity, unspecified
CPT/HCPCS: 71045; 71275; 73030; 80048; 80053; 80061; 81001; 81025; 82550; 82553; 83036; 83735; 84100; 84436; 84479; 84484; 85025; 85610; 85730; 87086; 93005; 93306; 93458; 99285-25

== ENCOUNTER 2018-03-25 09:56 | Emergency (ER) | payer MEDICAID ==
[2018-03-25] MEDS: ONDANSETRON (ODT) 4 MG TAB ODT (10:30)
== END 2018-03-25 11:19 | disposition home or self-care (01) ==
LOC: FTE 09:56
DX: R11.2 Nausea with vomiting, unspecified (principal); R19.7 Diarrhea, unspecified; Z79.82 Long term (current) use of aspirin
CPT/HCPCS: 99283; Z7502